=== PATIENT | female | born 1955 | race Hispanic/Latino ===

== ENCOUNTER → 2021-12-31 | Outpatient (CLI) | payer OTHER | END | disposition home or self-care (01) | LOC: RAH 14:38 | PROVIDERS: ATTEND Family Medicine | DX: I73.9 Peripheral vascular disease, unspecified (principal); M79.606 Pain in leg, unspecified | CPT/HCPCS: 93922 ==

== ENCOUNTER → 2025-02-27 | Outpatient (CLI) | payer OTHER, MEDICARE ==
[~2025-02-27] MED LIST: CHOL200013 PO; LEVO50TA11 PO; LOSA50TA64 PO; MELO-106 PO; NITR100C9 PO; POTA-200 PO
[2025-02-27 14:59] LABS: CREATININE 0.8 mg/dL (0.5-1.0); GLOMERULAR FILTR. RATE CALC 79.0 mL/min (>90); UREA NITROGEN, BLOOD 18.0 mg/dL (7-18)
== END | disposition home or self-care (01) ==
LOC: LAB 13:58
PROVIDERS: ATTEND Internal Medicine Gastroenterology
DX: R10.30 Lower abdominal pain, unspecified (principal)
CPT/HCPCS: 36415; 82565; 84520

== ENCOUNTER → 2025-03-07 | Outpatient (CLI) | payer OTHER, MEDICARE ==
[~2025-03-07] MED LIST changes: +IOHEXOL-350 75 ML VIAL IV ONE
--- NOTE | 2025-03-07 22:15 | HMCIMG ---
EXAM: CT ABDOMEN AND PELVIS WITH IV CONTRAST CLINICAL HISTORY: Lower abdominal pain, unspecified. TECHNIQUE: Axial computed tomography images of the abdomen and pelvis obtained with intravenous contrast. Multiplanar reformations reviewed. CONTRAST: 75 cc of nonionic intravenous contrast administered. RADIATION DOSE: Total CTDIvol (Body): 34.10 mGy Total DLP (Body): 1690.00 mGy???cm COMPARISON: None provided. FINDINGS: LUNG BASES: Clear. No pleural effusion or basal consolidation. LIVER: Normal in size and attenuation. No focal hepatic lesion. No intrahepatic biliary dilatation. GALLBLADDER AND BILE DUCTS: Surgically absent gallbladder. No intrahepatic or extrahepatic biliary ductal dilatation. PANCREAS: Normal in size and contour. No ductal dilatation or peripancreatic inflammation. SPLEEN: Normal in size and attenuation. ADRENAL GLANDS: Normal bilaterally. KIDNEYS, URETERS, AND BLADDER: Kidneys are normal in size and cortical thickness. No hydronephrosis, hydroureter, or calculus. Urinary bladder shows diffuse wall thickening up to 4.7 mm with mild perivesical fat stranding, suggestive of infective or inflammatory cystitis. STOMACH AND BOWEL: Diffuse colonic diverticulosis noted. Segmental circumferential wall thickening involving the sigmoid colon with maximum thickness 1.2 cm over a 4.1 cm length and pericolonic fat stranding, consistent with acute diverticulitis. No bowel obstruction or pneumoperitoneum. Appendix measures 0.3 cm, within normal limits, without adjacent inflammation. PERITONEUM: No free fluid or free air. ABDOMINAL WALL: Epigastric fascial defect measuring approximately 3 cm with a fat-containing subcutaneous sac, consistent with a small epigastric hernia. LYMPH NODES: No pathologic lymphadenopathy. REPRODUCTIVE: Surgically absent uterus. No adnexal mass or pelvic collection. VASCULATURE: Abdominal aorta and its major branches are patent and normal in caliber. BONES: No acute or destructive osseous lesion. IMPRESSION: * Epigastric fascial defect (3 cm) with fat-containing sac, consistent with small epigastric hernia. * Diffuse colonic diverticulosis with circumferential wall thickening and pericolonic fat stranding of the sigmoid colon ??? consistent with acute diverticulitis. * Diffuse urinary bladder wall thickening (4.7 mm) with perivesical fat stranding, likely infective/inflammatory cystitis. * Normal appendix (0.3 cm). * No bowel obstruction, free fluid, or pneumoperitoneum. /Locke
== END | disposition home or self-care (01) ==
LOC: RAH 09:46
PROVIDERS: ATTEND Internal Medicine Gastroenterology
DX: K57.30 Diverticulosis of large intestine without perforation or abscess without bleeding (principal); R10.30 Lower abdominal pain, unspecified; N32.89 Other specified disorders of bladder; Z90.710 Acquired absence of both cervix and uterus
CPT/HCPCS: 74177; Q9967